=== PATIENT | female | born 1990 | race Caucasian/White ===

== ENCOUNTER 2020-03-30 15:55 | Emergency (ER) | payer OTHER ==
[~2020-03-30] VITALS: Ht 162.6 cm; Wt 70.3 kg
[~2020-03-30 15:55] MED LIST: Augmentin 875-1 EACH PO; Bactrim Ds Tab1 EACH PO; Benadryl 50 mg50 MG PO; Diflucan100 MG PO; Flonase 0.05% N16 GM; Glucophage Xr750 MG PO; IBUP600 PO; IBUP800 PO; METF500 PO; OXYACE5T PO; Robaxin500 MG PO; Ultram50 MG PO; Verotin-Gr Cap1 EACH PO
[2020-03-30] MEDS ORDERED: ATIVAN0.5 MG PO (18:21)
== END 2020-03-30 19:15 | disposition home or self-care (01) ==
LOC: ER 15:55
DX: R00.1 Bradycardia, unspecified (principal); R42 Dizziness and giddiness; F41.9 Anxiety disorder, unspecified; E11.9 Type 2 diabetes mellitus without complications; Z91.048 Other nonmedicinal substance allergy status; Z91.012 Allergy to eggs; Z79.84 Long term (current) use of oral hypoglycemic drugs
CPT/HCPCS: 82947; 93005; 93010; 99285-25

== ENCOUNTER 2021-08-21 17:03 | Emergency (ER) | payer OTHER ==
[~2021-08-21] VITALS: Ht 162.6 cm; Wt 81.1 kg
[~2021-08-21 17:03] MED LIST changes: +ATIVAN0.5 MG PO
[2021-08-21 17:59] LABS: Source, Urine Clean Catch
[2021-08-21 18:04] LABS: BASOPHILS ABSOLUTE AUTO 0.07 K/mm3 (0.00-0.23); BASOPHILS PERCENT AUTO 1 % (0-2); EOSINOPHILS ABSOLUTE AUTO 0.27 K/mm3 (0.00-0.68); EOSINOPHILS PERCENT AUTO 2 % (0-6); Hematocrit 42.8 % (33.0-51.0); Hemoglobin 14.5 g/dL (11.5-16.0); IMMATURE GRAN ABSOLUTE AUTO 0.09 K/mm3 (0.00-0.10); IMMATURE GRAN PERCENT AUTO 1 % (0-1); LYMPHOCYTES ABSOLUTE AUTO 2.81 K/mm3 (0.84-5.20); LYMPHOCYTES PERCENT AUTO 21 % (21-46); MONOCYTES ABSOLUTE AUTO 0.89 K/mm3 (0.16-1.47); MONOCYTES PERCENT AUTO 7 % (4-13); Mean Corpuscular HGB 30.1 pg (26.0-34.0); Mean Corpuscular HGB Conc 33.9 g/dL (31.5-36.5); Mean Corpuscular Volume 89 fL (80-100); Mean Platelet Volume 9.7 fL (9.1-12.4); NEUTROPHILS ABSOLUTE AUTO 9.36 K/mm3 (1.96-9.15); NEUTROPHILS PERCENT AUTO 69 % (41-73); Platelet Count 331 K/mm3 (150-400); RDW Coefficient Variation 11.9 % (11.7-14.2); RDW Standard Deviation 38.6 fL (35.1-46.3); Red Blood Cell Count 4.81 M/mm3 (3.80-5.20); White Blood Cell Count 13.49 K/mm3 (4.00-11.30)
[2021-08-21 18:09] LABS: Appearance, Urine Clear (Clear); Bilirubin, Urine Neg (Neg); Blood, Urine 4+ (Neg); Color, Urine Yellow (P-Yellow); Glucose Qualitative, Urine Neg (Neg); Ketones, Urine 1+ (Neg); Leukocyte Esterase, Urine Neg (Neg); Nitrite, Urine Neg (Neg); Protein, Urine Neg (Neg); Specific Gravity, Urine 1.025 (1.003-1.022); Urobilinogen, Urine NORM (Normal)
[2021-08-21 18:19] LABS: Bacteria Few /hpf; Red Blood Cells, Urine 0-2 /hpf (0-2); Squamous Epithelial Cells Few /hpf (Few); White Blood Cells, Urine 0-2 /hpf (0-5)
[2021-08-21 18:22] LABS: Alanine Aminotransfer (ALT/SGP 36 U/L (12-78); Albumin, Blood 3.9 g/dL (3.4-5.0); Albumin/Globulin Ratio 0.9 (0.8-1.8); Alk Phos 45 U/L (50-136); Anion Gap 9 mmol/L (6-16); Aspartate Aminotrans (AST/SGOT 18 U/L (12-37); Bilirubin, Total 0.2 mg/dL (0.1-1.0); Blood Urea Nitrogen 11 mg/dL (8-24); Bun/Creatinine Ratio 26.6 (12.0-20.0); CO2, Blood 20 mmol/L (21-32); Calcium, Blood 9.9 mg/dL (8.5-10.1); Chloride, Blood 107 mmol/L (98-108); Creatinine, Blood 0.41 mg/dL (0.40-1.00); Globulin, Blood 4.4 g/dL (2.2-4.0); Glomerular Filtration Rate >60 (60-); Glucose, Blood 100 mg/dL (70-99); Potassium, Blood 3.9 mmol/L (3.5-5.5); Sodium, Blood 136 mmol/L (136-145); Total Protein, Blood 8.3 g/dL (6.4-8.2)
[2021-08-21] MEDS ORDERED: CODACE30 PO (20:09)
== END 2021-08-21 20:17 | disposition home or self-care (01) ==
LOC: ER 17:03
PROVIDERS: Physician Assistant
DX: O03.9 Complete or unspecified spontaneous abortion without complication (principal); O24.911 Unspecified diabetes mellitus in pregnancy, first trimester; O99.331 Smoking (tobacco) complicating pregnancy, first trimester; E11.9 Type 2 diabetes mellitus without complications; F17.290 Nicotine dependence, other tobacco product, uncomplicated; Z91.012 Allergy to eggs; Z91.018 Allergy to other foods; Z79.84 Long term (current) use of oral hypoglycemic drugs; Z79.899 Other long term (current) drug therapy; Z3A.10 10 weeks gestation of pregnancy
CPT/HCPCS: 36415; 76801; 76817; 80053; 81001; 84702; 85025; 86850; 86900; 86901; 99284-25

== ENCOUNTER → 2022-01-11 | Outpatient (CLI) | payer OTHER ==
[~2022-01-11] MED LIST changes: +CODACE30 PO
[2022-01-11 12:00] LABS: Source, Urine Clean Catch
[2022-01-11 13:15] LABS: Amorphous Mod (0-Heavy); Bacteria Many /hpf
[2022-01-11 13:16] LABS: Calcium Oxalate Crystals Few /hpf; Hyaline Casts 0-2 /lpf (0-2); Squamous Epithelial Cells Few /hpf (Few)
[2022-01-11 13:25] LABS: U Amphetamine Screen Not Detected; U Barbituate Screen Not Detected; U Benzodiazapine Screen Not Detected; U Buprenorphine Screen Not Detected; U Cannabinoids Screen Not Detected; U Cocaine Screen Not Detected; U Methadone Screen Not Detected; U Methamphetamine Screen Not Detected; U Opiates Screen Not Detected; U Oxycodone Screen Not Detected; U Phencyclidine Screen Not Detected; U Propoxyphene Screen Not Detected
== END | disposition home or self-care (01) ==
LOC: LAB SHORT 11:56
PROVIDERS: Obstetrics & Gynecology
DX: Z34.81 Encounter for supervision of other normal pregnancy, first trimester (principal)
CPT/HCPCS: 81015; 87086

== ENCOUNTER → 2022-06-21 | Outpatient (CLI) | payer OTHER ==
[2022-06-21 18:55] LABS: Creatinine, Urine Random 86.8 mg/dL (27.00-270.00); Protein, Urine Random 38.3 mg/dL (0.0-11.9); Protein/Creat Ratio, Ur Random 0.4
== END | disposition home or self-care (01) ==
LOC: LAB SHORT 14:35
PROVIDERS: Obstetrics & Gynecology
DX: R03.0 Elevated blood-pressure reading, without diagnosis of hypertension (principal)
CPT/HCPCS: 82570; 84156

== ENCOUNTER → 2022-06-26 | Outpatient (CLI) | payer OTHER ==
[2022-06-27 11:52] LABS: Protein, Urine Quantitative 27.4 mg/dL (0.0-11.9)
== END | disposition home or self-care (01) ==
LOC: LAB SHORT 09:00
PROVIDERS: Obstetrics & Gynecology
DX: O24.112 Pre-existing type 2 diabetes mellitus, in pregnancy, second trimester (principal)
CPT/HCPCS: 81050; 84156

== ENCOUNTER 2022-07-22 15:35 | Inpatient (IN) | payer OTHER ==
[~2022-07-22] VITALS: Ht 160 cm; Wt 95.0 kg
[2022-07-22 18:15] LABS: BASOPHILS ABSOLUTE AUTO 0.05 K/mm3 (0.00-0.23); BASOPHILS PERCENT AUTO 1 % (0-2); EOSINOPHILS PERCENT AUTO 1 % (0-6); Hematocrit 30.2 % (33.0-51.0); Hemoglobin 9.7 g/dL (11.5-16.0); IMMATURE GRAN ABSOLUTE AUTO 0.09 K/mm3 (0.00-0.10); IMMATURE GRAN PERCENT AUTO 1 % (0-1); LYMPHOCYTES ABSOLUTE AUTO 1.78 K/mm3 (0.84-5.20); LYMPHOCYTES PERCENT AUTO 20 % (21-46); MONOCYTES ABSOLUTE AUTO 0.74 K/mm3 (0.16-1.47); MONOCYTES PERCENT AUTO 8 % (4-13); Mean Corpuscular HGB 27.6 pg (26.0-34.0); Mean Corpuscular HGB Conc 32.1 g/dL (31.5-36.5); Mean Corpuscular Volume 86 fL (80-100); NEUTROPHILS ABSOLUTE AUTO 6.28 K/mm3 (1.96-9.15); NEUTROPHILS PERCENT AUTO 69 % (41-73); Platelet Count 186 K/mm3 (150-400); RDW Coefficient Variation 14.2 % (11.7-14.2); RDW Standard Deviation 43.2 fL (35.1-46.3); Red Blood Cell Count 3.52 M/mm3 (3.80-5.20); White Blood Cell Count 9.04 K/mm3 (4.00-11.30)
[2022-07-22 18:23] LABS: Albumin, Blood 2.1 g/dL (3.4-5.0); Albumin/Globulin Ratio 0.5 (0.8-1.8); Bilirubin, Total 0.2 mg/dL (0.1-1.0); Bun/Creatinine Ratio 18.6 (12.0-20.0); Calcium, Blood 8.7 mg/dL (8.5-10.1); Creatinine, Blood 0.38 mg/dL (0.40-1.00); Potassium, Blood 3.6 mmol/L (3.5-5.5); Total Protein, Blood 6.1 g/dL (6.4-8.2)
[2022-07-22 18:26] LABS: Protein, Urine Random 167.6 mg/dL (0.0-11.9)
[2022-07-22 19:06] LABS: Protein/Creat Ratio, Ur Random 1.6
[2022-07-22 19:51] LABS: PCO2 Cord - Arterial 102 mmHg (40-50); PO2 Cord - Arterial < 14 mmHg (16-20); pH Cord - Arterial 7.02 (7.28-7.35)
[2022-07-22 19:53] LABS: PCO2 Cord - Venous 65.8 mmHg (40-50); pH Umbilical Cord - Venous 7.15 (7.26-7.35)
[2022-07-23 06:05] LABS: BASOPHILS ABSOLUTE AUTO 0.04 K/mm3 (0.00-0.23); BASOPHILS PERCENT AUTO 0 % (0-2); EOSINOPHILS ABSOLUTE AUTO 0.07 K/mm3 (0.00-0.68); EOSINOPHILS PERCENT AUTO 1 % (0-6); Hemoglobin 9.9 g/dL (11.5-16.0); IMMATURE GRAN ABSOLUTE AUTO 0.07 K/mm3 (0.00-0.10); IMMATURE GRAN PERCENT AUTO 1 % (0-1); LYMPHOCYTES ABSOLUTE AUTO 1.76 K/mm3 (0.84-5.20); LYMPHOCYTES PERCENT AUTO 16 % (21-46); MONOCYTES PERCENT AUTO 7 % (4-13); Mean Corpuscular HGB 27.8 pg (26.0-34.0); Mean Corpuscular Volume 84 fL (80-100); Mean Platelet Volume 12.5 fL (9.1-12.4); NEUTROPHILS ABSOLUTE AUTO 8.16 K/mm3 (1.96-9.15); NEUTROPHILS PERCENT AUTO 75 % (41-73); Platelet Count 197 K/mm3 (150-400); RDW Coefficient Variation 13.9 % (11.7-14.2); RDW Standard Deviation 42.5 fL (35.1-46.3); Red Blood Cell Count 3.56 M/mm3 (3.80-5.20)
--- NOTE | 2022-07-23 18:00 | NUR ---
MAG SULFATE OFF AT [address] ANAYA ORDER
[2022-07-24] MEDS ORDERED: METF500 PO (09:14)
[2022-07-24] MEDS ORDERED: ACET500 PO (09:14)
[2022-07-24] MEDS ORDERED: OXYC5 PO (09:15)
[2022-07-24] MEDS ORDERED: LABE100 PO (11:49)
--- NOTE | 2022-07-26 14:17 | NUR ---
PPFU VIA TELEPHONE. PT IS AT [facility] W/ HER NB AND IS UNSURE WHEN NB WILL BE DISCHARGED. PT STATES SHE IS TAKING HER OWN BP W/ A CUFF AND TAKING LABETLOL PRESCRIBED BY DR. ANAYA. PT STATES SHE HAD A BM TODAY AND VAGINAL BLEEDING IS DECREASING, REMAINS RED IN COLOR. PT DENIES, HEADACHE, BLURRED VISION, OR DIZZINESS. PT DENIES NUMBNESS OR TINGLING IN HANDS AND FEET. PT DENIES PAIN, TENDERNESS, RED OR WARM HOT SPOTS IN HER KNEES OR CALVES. PT STATES SHE IS SWOLLEN IN HER FEET AND CALVES, INSTRUCTED PT TO ELEVATE HER FEED AND INCREASE WATER CONSUMPTION. PT STATES SHE IS TAKING A STOOL SOFTNER, PNV, IBUPROFEN, OXYCODONE, LABETELOL, AND GAS-X.
== END 2022-07-24 13:33 | disposition home or self-care (01) | DRG 788 ==
LOC: OBS 15:35 → BC 15:35 → OBS 15:45 → BC 15:45
PROVIDERS: Obstetrics & Gynecology; ADMIT Student in an Organized Health Care Education/Training Program
PROC: 10D00Z1 Extraction of Products of Conception, Low, Open Approach (ICD-10-PCS; principal; 2022-07-22 18:30)
DX: O14.04 Mild to moderate pre-eclampsia, complicating childbirth (principal); O99.214 Obesity complicating childbirth; O24.12 Pre-existing type 2 diabetes mellitus, in childbirth; O76 Abnormality in fetal heart rate and rhythm complicating labor and delivery; O99.02 Anemia complicating childbirth; O99.334 Smoking (tobacco) complicating childbirth; F17.210 Nicotine dependence, cigarettes, uncomplicated; Z37.0 Single live birth; Z3A.36 36 weeks gestation of pregnancy; Z91.012 Allergy to eggs; Z91.018 Allergy to other foods; Z79.899 Other long term (current) drug therapy; Z79.84 Long term (current) use of oral hypoglycemic drugs; Z79.4 Long term (current) use of insulin; Z79.82 Long term (current) use of aspirin
CPT/HCPCS: 36415; 36416; 59025; 80053; 81003; 82570; 82803; 82947; 84156; 85025; 86850; 86900; 86901; A9270; J0360; J0690; J1170; J1815; J1885; J2270; J2370; J2405; J2590; J2765; J3475; J7120

== ENCOUNTER → 2022-10-27 | Outpatient (CLI) | payer OTHER ==
[~2022-10-27] MED LIST changes: +ACET500 PO; +LABE100 PO; +OXYC5 PO
[2022-10-29 23:07] LABS: CHLAMYDIA TRACHOMATIS, NAA Negative (Negative)
== END | disposition home or self-care (01) ==
LOC: LAB 17:20 → LAB SHORT 17:20
PROVIDERS: Advanced Practice Midwife
DX: Z11.3 Encounter for screening for infections with a predominantly sexual mode of transmission (principal)
CPT/HCPCS: 87491; 87591

== ENCOUNTER 2023-12-25 02:23 | Emergency (ER) | payer OTHER ==
[~2023-12-25] VITALS: Ht 162.6 cm; Wt 81.7 kg
[2023-12-25 05:27] VITALS: BP 136/86
== END 2023-12-25 05:27 | disposition home or self-care (01) ==
LOC: ER 02:23
DX: S62.336A Displaced fracture of neck of fifth metacarpal bone, right hand, initial encounter for closed fracture (principal); F17.290 Nicotine dependence, other tobacco product, uncomplicated; E11.9 Type 2 diabetes mellitus without complications; Z79.84 Long term (current) use of oral hypoglycemic drugs; Z79.899 Other long term (current) drug therapy; Z91.012 Allergy to eggs; Z91.018 Allergy to other foods; W22.8XXA Striking against or struck by other objects, initial encounter; Y92.009 Unspecified place in unspecified non-institutional (private) residence as the place of occurrence of the external cause
CPT/HCPCS: 29125; 73130; 99283-25

== ENCOUNTER 2025-09-09 11:09 | Emergency (ER) | payer OTHER ==
[~2025-09-09] VITALS: Ht 162.6 cm; Wt 72.6 kg
[2025-09-09] MEDS ORDERED: FLUOXETINE HCL20 M2 PO (11:44)
[2025-09-09] MEDS ORDERED: INSULIN LI100 UNIT/6 SC (11:45)
[2025-09-09] MEDS ORDERED: INSULIN GL100 UNIT/2 SC (11:45)
[2025-09-09] MEDS ORDERED: PROP10 PO (11:45)
[2025-09-09] MEDS ORDERED: Ondansetron HCl 2 MG / ML 2ML Vial IV ONE (11:50)
[2025-09-09] MEDS ORDERED: NS 1,000 ML IV SCH (11:50)
[2025-09-09 11:52] LABS: BASOPHILS ABSOLUTE AUTO 0.04 K/mm3 (0.00-0.23); BASOPHILS PERCENT AUTO 1 % (0-2); EOSINOPHILS ABSOLUTE AUTO 0.07 K/mm3 (0.00-0.68); EOSINOPHILS PERCENT AUTO 1 % (0-6); Hematocrit 43.6 % (33.0-51.0); Hemoglobin 15.4 g/dL (11.5-16.0); IMMATURE GRAN ABSOLUTE AUTO 0.03 K/mm3 (0.00-0.10); IMMATURE GRAN PERCENT AUTO 0 % (0-1); LYMPHOCYTES ABSOLUTE AUTO 2.44 K/mm3 (0.84-5.20); LYMPHOCYTES PERCENT AUTO 30 % (21-46); MONOCYTES ABSOLUTE AUTO 0.43 K/mm3 (0.16-1.47); MONOCYTES PERCENT AUTO 5 % (4-13); Mean Corpuscular HGB Conc 35.3 g/dL (31.5-36.5); Mean Corpuscular Volume 82 fL (80-100); NEUTROPHILS ABSOLUTE AUTO 5.18 K/mm3 (1.96-9.15); NEUTROPHILS PERCENT AUTO 63 % (41-73); NRBC ABSOLUTE 0.00 K/mm3 (0.00-0.02); NRBC Auto 0.0 /100 WBC (0.0-0.2); Platelet Count 375 K/mm3 (150-400); RDW Coefficient Variation 11.9 % (11.7-14.2); RDW Standard Deviation 35.6 fL (35.1-46.3)
[2025-09-09 12:30] LABS: Alanine Aminotransfer (ALT/SGP 29.0 U/L (12-78); Albumin, Blood 3.6 g/dL (3.4-5.0); Albumin/Globulin Ratio 0.8 (0.8-1.8); Anion Gap 11.0 mmol/L (3-11); Aspartate Aminotrans (AST/SGOT 20.0 U/L (12-37); Bilirubin, Total 0.3 mg/dL (0.1-1.0); Blood Urea Nitrogen 9.0 mg/dL (8-24); CO2, Blood 21.0 mmol/L (21-32); Calcium, Blood 9.2 mg/dL (8.5-10.1); Chloride, Blood 107.0 mmol/L (98-108); Creatinine, Blood 0.59 mg/dL (0.40-1.00); Globulin, Blood 4.4 g/dL (2.2-4.0); Glucose, Blood 203.0 mg/dL (70-99); Potassium, Blood 4.0 mmol/L (3.5-5.5); Sodium, Blood 135.0 mmol/L (136-145); Thyroid Stimulating Hormone 1.91 uIU/mL (0.360-4.800); Total Protein, Blood 8.0 g/dL (6.4-8.2)
[2025-09-09 12:44] LABS: Source, Urine Clean Catch
[2025-09-09 12:50] LABS: Bilirubin, Urine Neg (Neg); Glucose Qualitative, Urine 2+ (Neg); Ketones, Urine 2+ (Neg); Leukocyte Esterase, Urine Neg (Neg); Protein, Urine 3+ (Neg); Specific Gravity, Urine 1.015 (1.003-1.022); Urobilinogen, Urine NORM (Normal)
[2025-09-09 13:01] LABS: Color, Urine Pale Yellow (P-Yellow)
[2025-09-09 13:02] LABS: White Blood Cells, Urine 0-2 /hpf (0-5)
[2025-09-09 13:45] VITALS: BP 134/86
[2025-09-11 14:12] LABS: DOUBLE-STRANDED DNA IGG ELISA 3 IU (0-24)
[2025-09-14 04:05] LABS: ANTINUCLEAR AB (ANA),HEP-2,IGG Detected (<1:80)
== END 2025-09-09 14:02 | disposition home or self-care (01) ==
LOC: ER 11:09
PROVIDERS: Physician Assistant
DX: R00.0 Tachycardia, unspecified (principal); R42 Dizziness and giddiness; F17.210 Nicotine dependence, cigarettes, uncomplicated; Z91.0120 Allergy to eggs, unspecified; Z91.018 Allergy to other foods; Z79.84 Long term (current) use of oral hypoglycemic drugs; Z79.4 Long term (current) use of insulin; Z79.899 Other long term (current) drug therapy
CPT/HCPCS: 80053; 81001; 84439; 84443; 85025; 86039; 86225; 93005; 93010; 96360; 99285-25; J2405; J7030

== ENCOUNTER 2025-09-26 23:15 | Emergency (ER) | payer OTHER ==
[~2025-09-26] VITALS: Ht 165.1 cm; Wt 72.6 kg
[~2025-09-26 23:15] MED LIST changes: +FLUOXETINE HCL20 M2 PO; +INSULIN GL100 UNIT/2 SC; +INSULIN LI100 UNIT/6 SC; +PROP10 PO
[2025-09-26 23:39] LABS: BASOPHILS ABSOLUTE AUTO 0.04 K/mm3 (0.00-0.23); BASOPHILS PERCENT AUTO 0 % (0-2); EOSINOPHILS ABSOLUTE AUTO 0.13 K/mm3 (0.00-0.68); EOSINOPHILS PERCENT AUTO 1 % (0-6); Hematocrit 39.6 % (33.0-51.0); Hemoglobin 13.6 g/dL (11.5-16.0); IMMATURE GRAN ABSOLUTE AUTO 0.03 K/mm3 (0.00-0.10); IMMATURE GRAN PERCENT AUTO 0 % (0-1); LYMPHOCYTES ABSOLUTE AUTO 3.23 K/mm3 (0.84-5.20); LYMPHOCYTES PERCENT AUTO 30 % (21-46); MONOCYTES ABSOLUTE AUTO 0.62 K/mm3 (0.16-1.47); MONOCYTES PERCENT AUTO 6 % (4-13); Mean Corpuscular HGB Conc 34.3 g/dL (31.5-36.5); Mean Corpuscular Volume 83 fL (80-100); NEUTROPHILS ABSOLUTE AUTO 6.87 K/mm3 (1.96-9.15); NEUTROPHILS PERCENT AUTO 63 % (41-73); NRBC ABSOLUTE 0.00 K/mm3 (0.00-0.02); NRBC Auto 0.0 /100 WBC (0.0-0.2); Platelet Count 380 K/mm3 (150-400); RDW Coefficient Variation 11.9 % (11.7-14.2); RDW Standard Deviation 36.2 fL (35.1-46.3)
[2025-09-27] LABS: Magnesium, Blood 2.1 mg/dL (1.6-2.4)
[2025-09-27 00:20] LABS: Alanine Aminotransfer (ALT/SGP 29.0 U/L (12-78); Albumin, Blood 2.6 g/dL (3.4-5.0); Albumin/Globulin Ratio 0.5 (0.8-1.8); Anion Gap 9.0 mmol/L (3-11); Aspartate Aminotrans (AST/SGOT 20.0 U/L (12-37); Bilirubin, Total 0.3 mg/dL (0.1-1.0); Blood Urea Nitrogen 13.0 mg/dL (8-24); CO2, Blood 24.0 mmol/L (21-32); Calcium, Blood 8.3 mg/dL (8.5-10.1); Chloride, Blood 104.0 mmol/L (98-108); Creatinine, Blood 0.87 mg/dL (0.40-1.00); Globulin, Blood 5.1 g/dL (2.2-4.0); Glucose, Blood 496.0 mg/dL (70-99); Potassium, Blood 4.5 mmol/L (3.5-5.5); Sodium, Blood 132.0 mmol/L (136-145); Total Protein, Blood 7.7 g/dL (6.4-8.2)
[2025-09-27 01:20] VITALS: BP 138/66
== END 2025-09-27 01:20 | disposition home or self-care (01) ==
LOC: ER 23:15
PROVIDERS: Student in an Organized Health Care Education/Training Program
DX: R00.2 Palpitations (principal); E11.65 Type 2 diabetes mellitus with hyperglycemia; Z91.0120 Allergy to eggs, unspecified; Z79.4 Long term (current) use of insulin; Z79.84 Long term (current) use of oral hypoglycemic drugs; Z79.899 Other long term (current) drug therapy; F17.290 Nicotine dependence, other tobacco product, uncomplicated
CPT/HCPCS: 71045; 80053; 83735; 84484; 85025; 93005; 93010; 99285-25

== ENCOUNTER 2025-10-06 04:38 | Emergency (ER) | payer OTHER ==
[~2025-10-06] VITALS: Ht 162.6 cm; Wt 74.8 kg
[2025-10-06] MEDS ORDERED: NS 1,000 ML IV SCH (04:55)
[2025-10-06 05:17] LABS: BASOPHILS ABSOLUTE AUTO 0.07 K/mm3 (0.00-0.23); BASOPHILS PERCENT AUTO 1 % (0-2); EOSINOPHILS ABSOLUTE AUTO 0.15 K/mm3 (0.00-0.68); EOSINOPHILS PERCENT AUTO 1 % (0-6); Hematocrit 38.8 % (33.0-51.0); Hemoglobin 13.6 g/dL (11.5-16.0); IMMATURE GRAN ABSOLUTE AUTO 0.05 K/mm3 (0.00-0.10); IMMATURE GRAN PERCENT AUTO 0 % (0-1); LYMPHOCYTES ABSOLUTE AUTO 3.05 K/mm3 (0.84-5.20); LYMPHOCYTES PERCENT AUTO 26 % (21-46); MONOCYTES ABSOLUTE AUTO 0.80 K/mm3 (0.16-1.47); MONOCYTES PERCENT AUTO 7 % (4-13); Mean Corpuscular HGB Conc 35.1 g/dL (31.5-36.5); Mean Corpuscular Volume 83 fL (80-100); NEUTROPHILS ABSOLUTE AUTO 7.44 K/mm3 (1.96-9.15); NEUTROPHILS PERCENT AUTO 64 % (41-73); NRBC ABSOLUTE 0.00 K/mm3 (0.00-0.02); NRBC Auto 0.0 /100 WBC (0.0-0.2); Platelet Count 404 K/mm3 (150-400); RDW Coefficient Variation 12.0 % (11.7-14.2); RDW Standard Deviation 36.5 fL (35.1-46.3)
[2025-10-06 05:35] LABS: Alanine Aminotransfer (ALT/SGP 24.0 U/L (12-78); Albumin, Blood 3.4 g/dL (3.4-5.0); Albumin/Globulin Ratio 0.9 (0.8-1.8); Anion Gap 11.0 mmol/L (3-11); Aspartate Aminotrans (AST/SGOT 13.0 U/L (12-37); Bilirubin, Total 0.3 mg/dL (0.1-1.0); Blood Urea Nitrogen 15.0 mg/dL (8-24); CO2, Blood 20.0 mmol/L (21-32); Calcium, Blood 8.8 mg/dL (8.5-10.1); Chloride, Blood 106.0 mmol/L (98-108); Creatinine, Blood 0.69 mg/dL (0.40-1.00); Globulin, Blood 3.9 g/dL (2.2-4.0); Glucose, Blood 315.0 mg/dL (70-99); Potassium, Blood 4.1 mmol/L (3.5-5.5); Sodium, Blood 133.0 mmol/L (136-145); Total Protein, Blood 7.3 g/dL (6.4-8.2)
[2025-10-06 06:30] LABS: Source, Urine Clean Catch
[2025-10-06 06:39] LABS: Bilirubin, Urine Neg (Neg); Glucose Qualitative, Urine 4+ (Neg); Ketones, Urine 2+ (Neg); Leukocyte Esterase, Urine Neg (Neg); Protein, Urine 3+ (Neg); Specific Gravity, Urine 1.015 (1.003-1.022); Urobilinogen, Urine NORM (Normal)
[2025-10-06 06:48] LABS: Color, Urine Pale Yellow (P-Yellow); White Blood Cells, Urine 0-2 /hpf (0-5)
[2025-10-06 08:00] VITALS: BP 147/100
== END 2025-10-06 08:15 | disposition home or self-care (01) ==
LOC: ER 04:38
PROVIDERS: Emergency Medicine
DX: R07.89 Other chest pain (principal); E11.9 Type 2 diabetes mellitus without complications; I10 Essential (primary) hypertension; F17.210 Nicotine dependence, cigarettes, uncomplicated; Z79.4 Long term (current) use of insulin; Z79.84 Long term (current) use of oral hypoglycemic drugs; Z79.899 Other long term (current) drug therapy; Z91.0120 Allergy to eggs, unspecified; Z91.018 Allergy to other foods
CPT/HCPCS: 71045; 71260; 80053; 81001; 83880; 84484; 85025; 85379; 93005; 93010; 96360; 99285-25; A9270; J7030; Q9967